=== PATIENT | female | born 1975 | race Caucasian/White ===

== ENCOUNTER 2019-06-30 10:23 | Emergency (ER) | payer MEDICAID ==
[~2019-06-30] VITALS: Ht 160 cm; Wt 111.5 kg
[2019-06-30 10:58] VITALS: BP 134/80
== END 2019-06-30 11:47 | disposition home or self-care (01) ==
LOC: ED 11:30
DX: H65.02 Acute serous otitis media, left ear (principal); J01.00 Acute maxillary sinusitis, unspecified; F17.200 Nicotine dependence, unspecified, uncomplicated
CPT/HCPCS: 99283

== ENCOUNTER 2019-09-16 02:29 | Emergency (ER) | payer MEDICAID ==
[~2019-09-16] VITALS: Ht 160 cm; Wt 111.5 kg
[2019-09-16 02:33] VITALS: BP 165/91
[2019-09-16] MEDS ORDERED: CLINDAMYCIN 300 MG CAPSULE ONE (02:56)
[2019-09-16] MEDS ORDERED: HYDROcodone/APAP 5/325 TABLET ONE (02:56)
[2019-09-16] MEDS ORDERED: HYDROcodone/APAP 5/325 TABLET PO ONE (03:00)
[2019-09-16] MEDS ORDERED: CLINDAMYCIN 300 MG CAPSULE PO ONE (03:00)
== END 2019-09-16 03:04 | disposition home or self-care (01) ==
LOC: ED 02:45
DX: K08.89 Other specified disorders of teeth and supporting structures (principal)
CPT/HCPCS: 99283

== ENCOUNTER 2021-01-01 16:26 | Emergency (ER) | payer MEDICAID ==
[~2021-01-01] VITALS: Ht 160 cm; Wt 108.3 kg
--- NOTE | 2021-01-01 17:03 | NUR ---
CC OF LEFT ARM NUMBNESS THAT STARTED THIS AM AFTER PT HAD A COUGH. PT ALSO STATES LEFT UPPER CHEST STARTED HURTING AND LECK NECK. PT STATES SWALLOWING WAS HARD WITH LEFT SIDE THIS AM BUT IS BETTER NOW. NARCISORJEFF. STILL HAS LEFT ARM NUMBNESS. 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 DENIES EVER HAVING THIS BEFORE. AT BEDSIDE.
[2021-01-01] MEDS ORDERED: SODIUM CHLORIDE FLUSH 10ML SYR IVF ONE (18:00)
[2021-01-01] MEDS ORDERED: HYDROmorphone 1 MG/ML, 1ML INJ IVPush PRN (18:00)
[2021-01-01] MEDS ORDERED: ONDANSETRON 2MG/ML, 2ML IVPush ONE (18:00)
[2021-01-01] MEDS ORDERED: ONDANSETRON 2MG/ML, 2ML ONE (18:01)
[2021-01-01] MEDS ORDERED: HYDROmorphone 1 MG/ML, 1ML INJ ONE (18:01)
[2021-01-01 18:06] LABS: BASOPHILS % (AUTO) 1 % (0-1); EOSINOPHILS % (AUTO) 3 % (1-7); LYMPHOCYTES % (AUTO) 29 % (22-44); MEAN CORPUSCULAR HGB CONC 31.9 g/dL (32.4-35.8); MEAN PLATELET VOLUME 9.6 fL (7.4-10.4); MONOCYTES % (AUTO) 7 % (2-9); NEUTROPHILS % (AUTO) 61 % (42-75); PLATELET COUNT 274 x10^3/uL (130-400); RED BLOOD COUNT 5.24 x10^6/uL (3.82-5.3); RED CELL DISTRIBUTION WIDTH 16.6 % (9.6-15.2)
[2021-01-01 18:08] LABS: ALANINE AMINOTRANSFERASE 35 U/L (12-78); ALBUMIN 3.3 g/dL (3.4-5.0); ANION GAP 3 mmol/L (5-15); CALCIUM 8.4 mg/dL (8.5-10.1); CHLORIDE 102 mmol/L (98-107); CREATININE 0.69 mg/dL (0.55-1.02)
[2021-01-01 18:09] LABS: ALKALINE PHOSPHATASE 111 U/L (45-117); BILIRUBIN,TOTAL 0.3 mg/dL (0.2-1.0); TOTAL PROTEIN 7.7 g/dL (6.4-8.2)
--- NOTE | 2021-01-01 19:05 | NUR ---
PT UP TO RESTROOM, HAS STEADY INDENPENDENT GAIT.
--- NOTE | 2021-01-01 19:17 | NUR ---
PT TO CT
[2021-01-01] MEDS ORDERED: OMNIPAQUE 350 MG/ML, 75ML BOTTLE ONE (19:43)
--- NOTE | 2021-01-01 20:01 | NUR ---
pt given pillows for comfort
[2021-01-01 21:31] VITALS: BP 113/73
== END 2021-01-01 21:37 | disposition home or self-care (01) ==
LOC: ED 17:30
DX: M48.02 Spinal stenosis, cervical region (principal); R05 Cough; R07.89 Other chest pain; R51.9 Headache, unspecified; R06.89 Other abnormalities of breathing; R94.31 Abnormal electrocardiogram [ECG] [EKG]; F17.210 Nicotine dependence, cigarettes, uncomplicated
CPT/HCPCS: 36415; 70450; 70498; 71045; 72125; 80053; 85025; 93005; 96374; 96375; 99285; J1170; J2405; Q9967